=== PATIENT | female | born 1960 | race Caucasian/White ===

== ENCOUNTER → 2021-06-11 13:03 | Outpatient (CLI) | payer SELFPAY, OTHER ==
--- NOTE | 2021-06-11 13:13 | CT_ITS ---
STUDY: CT ABDOMEN AND PELVIS WITH AND WITHOUT CONTRAST REASON FOR EXAM: Female, 60 years old. OTHER MICRO HEMATURIA,UNSPECIFIED ABD PAIN RADIATION DOSAGE (If Supplied By Facility): CTDIvol = ( 17.41 ) mGy, DLP = ( 2389.6 ) mGycm TECHNIQUE: Transaxial images were obtained from the dome of the diaphragm to the symphysis pubis without oral contrast. 100ML ISOVUE 300 was administered. Sagittal and coronal images were reconstructed. Individualized dose optimization techniques were used for this CT. COMPARISON: None. FINDINGS: The visualized lung bases are unremarkable. The visualized portions of the heart are within normal limits. There is decreased attenuation of the liver consistent with steatosis. Normal gallbladder and extrahepatic biliary system. Normal spleen. Normal pancreas. Normal bilateral adrenal glands. Normal right kidney. Normal left kidney. Parapelvic cysts in the left kidney. Normal visualized stomach. Normal small intestine. Normal colon. The appendix is visualized and appears normal. Normal abdominal aorta. Normal inferior vena cava. Normal retroperitoneum. Normal urinary bladder. Normal abdominal wall. Normal osseous structures. CT/CT Abd/Pelvis W/WO Contrast IMPRESSION: Normal unenhanced and enhanced CT of the abdomen and pelvis. No CT evident etiology of hematuria. Electronically Signed: Antonio Steven MD at 14:27 EDT Tel , Service support ,
[2021-06-11 13:51] LABS: CREATININE FINGERSTICK 1.1 mg/dL (0.55-1.02)
== END ==
PROVIDERS: PCP Family Medicine; Referring Provider Nurse Practitioner Adult Health; Visit Provider Nurse Practitioner Adult Health
DX: R31.29 Other microscopic hematuria (principal); R10.9 Unspecified abdominal pain
CPT/HCPCS: 74178; Q9967